=== PATIENT | male | born 1985 | race Caucasian/White ===

== ENCOUNTER 2018-06-05 13:22 | Emergency (ER) | payer BC, OTHER | END 2018-06-05 16:00 | disposition home or self-care (01) | LOC: FTE 13:22 | DX: J06.9 Acute upper respiratory infection, unspecified (principal) | CPT/HCPCS: 99283 ==

== ENCOUNTER 2018-08-23 20:26 | Emergency (ER) | payer BC, OTHER ==
[2018-08-23] MEDS: DIPHENHYDRAMINE 25 MG CAP PO (21:45)
[2018-08-23] MEDS: TRIMETHOPRIM/SULFAMETHOX (DS) TAB PO (21:46)
[2018-08-23] MEDS: CEPHALEXIN 500 MG CAP PO (21:46)
== END 2018-08-23 22:30 | disposition home or self-care (01) ==
LOC: FTE 22:30
DX: S60.562A Insect bite (nonvenomous) of left hand, initial encounter (principal); L03.114 Cellulitis of left upper limb; W57.XXXA Bitten or stung by nonvenomous insect and other nonvenomous arthropods, initial encounter; Y92.9 Unspecified place or not applicable
CPT/HCPCS: 99283